=== PATIENT | female | born 1965 | race Caucasian/White ===

== ENCOUNTER → 2019-06-01 16:27 | Outpatient (CLI) | payer OTHER, SELFPAY ==
[2019-06-01 13:34] VITALS: BMI 36.8
--- NOTE | 2019-06-01 13:45 | LES_PTH ---
PATIENT: WYATT CRAMER LOC: [facility] U#:[id number] AGE/SX: 59/F ROOM: RE06/01/[address]: Dr. Jhon Foley MD : [id number] BED: DIS: SPEC #: [id number] RECD: 06/01/19 16:25 STATUS: BRENNEN GAVINO #: [id number] GREGORY: 06/01/19 13:[address]: Jhon Foley DEPT: SURGICAL PATHOLOGY RECD BY: Mehul Trujillo ENTERED: 06/02/19 09:57 SP TYPE: Lesion OTHR DR: Dr. Sandra Dubose, DO Tissues: Skin of face, NOS Procedures: Surgery Specimen Level IV HEADER OPERATION: Excision facial lesion PRE-OP DIAGNOSIS: Uncertain neoplasm TISSUE SUBMITTED: Right facial lesion MICROSCOPIC DIAGNOSIS Right facial lesion, excisional biopsy: Intradermal nevus. SJ:ashley 06/03/19 MICROSCOPIC DESCRIPTION Slides are reviewed. GROSS DESCRIPTION Received in fixative is one container labeled with the patient's name and designated right facial lesion. The specimen consists of a piece of cotton-white skin ellipse measuring 2 x 0.7 cm and up to 0.4 cm in thickness. There is a raised cotton lesion on the surface measuring 0.7 x 0.7 x 0.3 cm. The specimen is inked, serially sectioned and submitted entirely in one cassette. / SJ:ashley 06/02/19 TC:1 CPT: 30740
== END ==
PROVIDERS: Family Provider Internal Medicine; PCP Internal Medicine; Referring Provider Surgery; Visit Provider Surgery
DX: L98.9 Disorder of the skin and subcutaneous tissue, unspecified (principal)
CPT/HCPCS: 88305